=== PATIENT | female | born 1935 | race Caucasian/White ===

== ENCOUNTER 2017-08-10 11:57 | Emergency (ER) | payer MEDICARE ==
[~2017-08-10] VITALS: Ht 154.9 cm; Wt 55.0 kg
[~2017-08-10 11:57] MED LIST: LEVOTHYROXIN50 MCG PO; LIPITOR40 M1 PO; LOSARTAN POT50 MG PO
[2017-08-10] MEDS ORDERED: MICRO-K10 ME1 PO (12:03)
[2017-08-10] MEDS ORDERED: AMOXICILLIN500 M2 PO (12:13)
[2017-08-10 12:20] VITALS: BP 139/84
== END 2017-08-10 12:20 | disposition home or self-care (01) ==
LOC: ED 11:57
DX: H66.92 Otitis media, unspecified, left ear (principal); H92.02 Otalgia, left ear